=== PATIENT | male | born 1950 | race Caucasian/White ===

== ENCOUNTER 2017-02-04 09:57 | Day surgery (SDC) | payer OTHER ==
[2017-02-04] MEDS ORDERED: DIPRIVAN VIAL ONE (10:31)
[2017-02-04] MEDS ORDERED: TETRACAINE 0.5% OPHTH 1 DOSE AFFEYE ONE ×2 (11:20→15:23)
[2017-02-04] MEDS ORDERED: VIGAMOX 0.5% OPHTH 1 DOSE AFFEYE ONE ×5 (11:22→15:43)
[2017-02-04] MEDS ORDERED: NS 500 ML IV 500 ML IV ONE (11:30)
[2017-02-04] MEDS ORDERED: PROLENSA OPHTH 1 DOSE AFFEYE ONE (11:35)
[2017-02-04] MEDS ORDERED: ALPHAGAN-P OPHTH 1 DOSE AFFEYE ONE (11:38)
[2017-02-04] MEDS ORDERED: CYCLOGYL 1% OPHTH 1 DOSE OP ONE ×5 (11:39→11:51)
[2017-02-04] MEDS ORDERED: AK-DILATE 2.5% OPHTH 1 DOSE OP ONE ×5 (11:40→11:52)
[2017-02-04] MEDS ORDERED: MYDRIACIL OPHTH 1 DOSE AFFEYE ONE ×5 (11:41→11:53)
[2017-02-04] MEDS ORDERED: BETADINE OPHTH SOLN 5% EACHEYE ONE (15:20)
[2017-02-04] MEDS ORDERED: XYLOCAINE-MPF 1% IJ ONE ×2 (15:23→15:30)
[2017-02-04] MEDS ORDERED: ADRENALINE CHL INJ IJ ONE ×2 (15:23→15:30)
[2017-02-04] MEDS ORDERED: DUOVISC IO ONE ×2 (15:23→15:30)
[2017-02-04] MEDS ORDERED: BSS OPHTH (PLAIN) 500 ML with VANCOMYCIN HCL 500 MG VIAL 25 MG, ADRENALINE CHL INJ 1 MG IR ONE ×6 (15:25)
[2017-02-04] MEDS ORDERED: VISCOAT 0.5 ML IO ONE (15:39)
[2017-02-04 17:05] VITALS: BP 184/89
== END 2017-02-04 16:10 | disposition home or self-care (01) ==
LOC: SURG1 09:57
PROVIDERS: ATTEND Ophthalmology
PROC: 08DK3ZZ Extraction of Left Lens, Percutaneous Approach (ICD-10-PCS; principal; 2017-02-04 19:30)
PROC: 08RK3JZ Replacement of Left Lens with Synthetic Substitute, Percutaneous Approach (ICD-10-PCS; principal; 2017-02-04 19:30)
DX: H25.12 Age-related nuclear cataract, left eye (principal); H25.012 Cortical age-related cataract, left eye; H25.042 Posterior subcapsular polar age-related cataract, left eye
CPT/HCPCS: A4217; J0170; J3370; J3490

== ENCOUNTER 2017-02-25 07:29 | Day surgery (SDC) | payer OTHER ==
[2017-02-25] MEDS ORDERED: NS 500 ML IV 500 ML IV ONE ×2 (07:46→08:48)
[2017-02-25] MEDS ORDERED: TETRACAINE 0.5% OPHTH 1 DOSE AFFEYE ONE ×2 (07:57→10:50)
[2017-02-25] MEDS ORDERED: VIGAMOX 0.5% OPHTH 1 DOSE AFFEYE ONE ×5 (07:58→11:13)
[2017-02-25] MEDS ORDERED: PROLENSA OPHTH 1 DOSE AFFEYE ONE (08:09)
[2017-02-25] MEDS ORDERED: ALPHAGAN-P OPHTH 1 DOSE AFFEYE ONE (08:10)
[2017-02-25] MEDS ORDERED: CYCLOGYL 1% OPHTH 1 DOSE OP ONE ×4 (08:11→08:14)
[2017-02-25] MEDS ORDERED: MYDRIACIL OPHTH 1 DOSE AFFEYE ONE ×4 (08:11→08:14)
[2017-02-25] MEDS ORDERED: AK-DILATE 2.5% OPHTH 1 DOSE OP ONE ×4 (08:11→08:14)
[2017-02-25] MEDS ORDERED: DIPRIVAN VIAL ONE (09:33)
[2017-02-25] MEDS ORDERED: BETADINE OPHTH SOLN 5% EACHEYE ONE (10:47)
[2017-02-25] MEDS ORDERED: ADRENALINE CHL INJ IJ ONE ×2 (10:53→11:02)
[2017-02-25] MEDS ORDERED: DUOVISC IO ONE ×2 (10:53→11:02)
[2017-02-25] MEDS ORDERED: XYLOCAINE-MPF 1% IJ ONE ×2 (10:53→11:02)
[2017-02-25] MEDS ORDERED: BSS OPHTH (PLAIN) 500 ML with VANCOMYCIN HCL 500 MG VIAL 25 MG, ADRENALINE CHL INJ 1 MG IR ONE ×6 (10:55)
[2017-02-25 13:02] VITALS: BP 163/80
== END 2017-02-25 11:40 | disposition home or self-care (01) ==
LOC: SURG1 07:29
PROVIDERS: ATTEND Ophthalmology
PROC: 08RJ3JZ Replacement of Right Lens with Synthetic Substitute, Percutaneous Approach (ICD-10-PCS; principal; 2017-02-25 12:00)
PROC: 08DJ3ZZ Extraction of Right Lens, Percutaneous Approach (ICD-10-PCS; principal; 2017-02-25 12:00)
DX: H25.11 Age-related nuclear cataract, right eye (principal); H25.011 Cortical age-related cataract, right eye; H25.041 Posterior subcapsular polar age-related cataract, right eye
CPT/HCPCS: A4217; J0170; J3370; J3490